=== PATIENT | male | born 1995 | race Two or more races ===

== ENCOUNTER 2019-02-01 13:45 | Emergency (ER) | payer SELFPAY ==
[~2019-02-01] VITALS: Ht 177.8 cm; Wt 96.6 kg
[2019-02-01 14:27] VITALS: BP 121/75
[2019-02-01] MEDS ORDERED: IBUPROFEN 800 MG TAB PO ONE (14:45)
== END 2019-02-01 15:07 | disposition home or self-care (01) ==
LOC: ER 13:49
DX: G89.29 Other chronic pain (principal); M25.561 Pain in right knee